=== PATIENT | female | born 1935 | race Caucasian/White ===

== ENCOUNTER → 2016-11-15 | Outpatient (CLI) | payer MEDICARE, BC ==
[~2016-11-15] MED LIST: AMARYL2 MG PO; AMITRYPTYLINE PO; ASPIRIN81 M1 PO; ASPIRIN81 MG PO; ATENOLOL25 MG PO; ATIVAN PO; ATIVAN2 M1 PO; CELEBREX PO; CHEWABLE ASPIRI81 MG PO; CIPRO PO; CLEOCIN HCL300 M1 PO; CLINDAMYCIN HC300 MG PO; CLOPIDOGREL75 MG PO; FLAX SEED OIL1000 MG PO; FOLIC ACID PO; FOSAMAX PO; GLUCOPHAGE500 M1 PO; GLUCOPHAGE500 MG PO; GLUCOVANCE 5/501 TA1 PO; HYDROCODON-ACE1 EAC1 PO; IPRAT-ALBUT 0.5-3 ML INH; LISINOPRIL; LISINOPRIL-HCTZ1 T14 PO; LORTAB 10-5001 EACH; LORTAB 7.5-5001 TAB PO; MACULAR VITAMI0.5 MG PO; MAGNESIUM250 M1 PO; MIRAPEX0.25 MG DOB; MOBIC PO; MORGIDOX100 MG PO; MUCINEX D ER T1 EAC1 PO; OCUVITE SOFTGEL1 CA1 PO; PLAQUENIL200 MG PO; PRAMIPEXOLE DI0.5 MG PO; PROZAC PO; PROZAC40 MG DOB; SYNTHROID PO; SYNTHROID112 MCG PO; VITAMIN B COMPL1 TA3 PO; VITAMIN E1000 UNI1 PO; VITAMIN E400 UNI2 PO; ZESTORETIC 20/11 TAB PO
--- NOTE | ~2016-11-15 | CT55 ---
[facility] A Service [facility] RADIOLOGY TEXT RESULTS PATIENT: LEONIE MANRIQUEZ LOCATION: [facility] : 34 UNIT #: [id number] AGE: [address]: Tylor Andrews MD SEX: F ORDER DR: [id number] [place] [id number] O MR#: [id number] Acc #: [id number] NAME: LEONIE MANRIQUEZ : 1935 SEX: F STUDY DATE/TIME: 11/15/2016 12:57 UNIT: SCT ROOM: STUDY DESCRIPTION: CT Chest W Con Attending Physician: Tylor Andrews M.D. Referring Physician: Tylor Andrews M.D. Ordering Physician: Tylor Andrews M.D. Primary Care Physician: Curt Blanco M.D. MEDICAL IMAGING REPORT This report is preliminary unless electronic signature is present. EXAM CT chest with contrast INDICATION Hypothyroidism. Adverse effect of immunosuppressive therapy. Melanoma. Restaging observation for metastatic disease. PROCEDURE Contrast-enhanced CT of the chest. 100 mL of Isovue 370. This CT examination was performed with one or more of the following radiation dose reduction techniques: automatic exposure control, adjustment of mA and/or kV according to patient size, and iterative reconstruction. COMPARISON 06/12/2016. FINDINGS Redemonstration of mildly prominent mediastinal and hilar lymph nodes in the soft tissue. A right infrahilar node measures 2.3 x 1.3 cm and is not significantly changed from the prior. Cardiomegaly with coronary artery calcification. Previous right mastectomy and axillary node dissection. No abnormal axillary adenopathy. Redemonstration of a UIP type pattern of interstitial lung disease. There is no new dense consolidation. No aggressive appearing bone lesion. Calcified pleural plaques similar. IMPRESSION 1. No evidence for disease progression. 2. UIP type pattern of interstitial lung disease. 3. Mildly prominent hilar and mediastinal nodes are unchanged. Dictated by... [facility] A Service [facility] RADIOLOGY TEXT RESULTS PATIENT: LEONIE MANRIQUE[id number] UNIT #: [id number] AGE: [address]: Tylor Andrews MD SEX: F ORDER DR: Justin Diop M.D. THIS IS AN ELECTRONICALLY VERIFIED REPORT Justin Diop M.D. at 11/19/2016 8:21 AM ZOHAIB/girish TD: 11/16/2016 08:22 JOB #: [id number] MEDICAL IMAGING REPORT Page 1 of 1
--- NOTE | ~2016-11-15 | CT2 ---
[facility] A Service of [facility] RADIOLOGY TEXT RESULTS PATIENT: LEONIE MANRIQUEZ LOCATION: [facility] : 34 UNIT #: [id number] AGE: [address]: Tylor Andrews MD SEX: F ORDER DR: [id number] [place] [id number] O MR#: [id number] Acc #: [id number] NAME: LEONIE MANRIQUEZ : 1935 SEX: F STUDY DATE/TIME: 11/15/2016 12:57 UNIT: SCT ROOM: STUDY DESCRIPTION: CT Abd and Pelv W Cont Attending Physician: Tylor Andrews M.D. Referring Physician: Tylor Andrews M.D. Ordering Physician: Tylor Andrews M.D. Primary Care Physician: Curt Blanco M.D. MEDICAL IMAGING REPORT This report is preliminary unless electronic signature is present. EXAM CT abdomen and pelvis with contrast INDICATION Adverse effect of immunosuppressive therapy. Melanoma restaging. Observation for metastatic disease. PROCEDURE Contrast-enhanced CT of the abdomen and pelvis. 100 mL of Isovue 370. This CT examination was performed with one or more of the following radiation dose reduction techniques: automatic exposure control, adjustment of mA and/or kV according to patient size, and iterative reconstruction. COMPARISON 06/12/2016. FINDINGS ABDOMEN WITH CONTRAST: No liver or splenic mass. The kidneys and adrenal glands are unremarkable. Duodenal diverticulum. There is a 9 mm cyst in the tail of the pancreas. Bowel loops nondilated. No abdominal adenopathy. PELVIS WITH CONTRAST: Partially calcified fibroid in the uterus is unchanged. Streak artifact from right hip prosthesis. No adnexal mass or pelvic adenopathy. Atherosclerotic calcification throughout the abdominal aorta and major pelvic arteries. No aggressive appearing bone lesion. IMPRESSION 1. No convincing evidence for metastatic disease in the abdomen or pelvis. 2. Incidental findings are detailed above. [facility] A Service of [facility] RADIOLOGY TEXT RESULTS PATIENT: LEONIE MANRIQUEZ LOCATION: [facility] : 34 UNIT #: [id number] AGE: [address]: Tylor Andrews MD SEX: F ORDER DR: Dictated by... Justin Diop M.D. THIS IS AN ELECTRONICALLY VERIFIED REPORT Justin Diop M.D. at 11/19/2016 8:21 AM ZOHAIB/girish TD: 11/16/2016 09:34 JOB #: [id number] MEDICAL IMAGING REPORT Page 1 of 1
--- NOTE | ~2016-11-15 | MR107 ---
[facility] A Service of [facility] & [facility] RADIOLOGY TEXT RESULTS PATIENT: LEONIE MANRIQUEZ LOCATION: [facility] : 34 UNIT #: [id number] AGE: [address]: Tylor Andrews MD SEX: F ORDER DR: [id number] [address] [address] [id number] O MR#: [id number] Acc #: [id number] NAME: LEONIE MANRIQUEZ : 1935 SEX: F STUDY DATE/TIME: 11/15/2016 12:10 UNIT: SCT ROOM: STUDY DESCRIPTION: MR Gino Cintron WWo Cont Lt Attending Physician: Tylor Andrews M.D. Referring Physician: Tylor Andrews M.D. Ordering Physician: Tylor Andrews M.D. Primary Care Physician: Curt Blanco M.D. MRI CENTER REPORT This report is preliminary unless electronic signature is present. EXAM MRI of the left hip and thigh. HISTORY Follow up left inner thigh mass. Patient history of multiple myeloma. Continued decrease in size of lesions since infusion therapy. COMPARISON MRI 06/12/2016 and 08/18/2015. FINDINGS Multiplanar, multiecho imaging was performed of the left hip and thigh utilizing a high field magnet and dedicated protocol. Examination demonstrates further decrease in size of the patient's left thigh lesion which lies just medial and deep to the iliac vessels. The lesion measures no more than 8 x 11 mm. On the previous MRI, this measured about 1 x 1.3 cm. This is felt to correspond to the large mass noted on the July 2015 study. No new mass lesions are identified. Lesion lateral to the iliac vessels measures about 1.2 x 1.8 cm, and also appears slightly smaller than prior study and may represent a component of the patient's primary lesion. There are several STIR hyperintense lesions more proximal within the groin compatible with lymph nodes. Thigh musculature appears normal. The femoral vessels appear normal. Visualized pelvis and thigh musculature normal. IMPRESSION Continued decrease in size of the patient's left proximal thigh mass which now measures no more than 8 x 11 mm. This component is slightly deep and medial to the femoral vessels, but is felt to correspond to the patient's original primary lesion. A second lesion lateral to the femoral vessels has also shown slight decrease in size and could represent a component of the patient's primary lesion and this measures about 1.2 x 1.8 cm, though this could possibly just represent a lymph node. Clearly no new areas of STS. [facility] A Service of [facility] RADIOLOGY TEXT RESULTS PATIENT: LEONIE MANRIQUEZ LOCATION: [facility] : 34 UNIT #: [id number] AGE: [address]: Tylor Andrews MD SEX: F ORDER DR: tumor are identified. Dictated by... Jian Ribeiro M.D. THIS IS AN ELECTRONICALLY VERIFIED REPORT Jian Ribeiro M.D. at 11/19/2016 1:19 PM BEVERLY/yovani TD: 11/19/2016 12:15 JOB #: [id number] MRI CENTER REPORT Page 1 of 1
[2016-11-15 13:00] LABS: POC - GFR >60.0 mL/min (>60)
== END | disposition home or self-care (01) ==
LOC: SCT 11:12
PROVIDERS: Internal Medicine Hematology
DX: C43.59 Malignant melanoma of other part of trunk (principal); T45.1X5D Adverse effect of antineoplastic and immunosuppressive drugs, subsequent encounter; E03.2 Hypothyroidism due to medicaments and other exogenous substances; R22.42 Localized swelling, mass and lump, left lower limb
CPT/HCPCS: 71260; 73720; 74177; 82565; A9581; Q9967

== ENCOUNTER → 2017-03-29 | Outpatient (CLI) | payer MEDICARE, BC ==
--- NOTE | ~2017-03-29 | MR107 ---
[facility] A Service of [facility] & [facility] RADIOLOGY TEXT RESULTS PATIENT: LEONIE MANRIQUEZ LOCATION: [facility] : 34 UNIT #: [id number] AGE: [address]: Tylor Andrews MD SEX: F ORDER DR: [id number] [address] [address] [id number] O MR#: [id number] Acc #: [id number] NAME: LEONIE MANRIQUEZ : 1935 SEX: F STUDY DATE/TIME: 03/29/2017 10:55 UNIT: SCT ROOM: STUDY DESCRIPTION: MR Gino Cintron WWo Cont Lt Attending Physician: Tylor Andrews M.D. Referring Physician: Tylor Andrews M.D. Ordering Physician: Tylor Andrews M.D. Primary Care Physician: Curt Blanco M.D. MRI CENTER REPORT This report is preliminary unless electronic signature is present. EXAM MRI of the left thigh and femur. HISTORY 81-year-old female with anterior medial thigh mass. States has continued to increase in size. History of breast cancer and melanoma. TECHNIQUE Multiplanar multiecho imaging was performed of the left groin and proximal thigh utilizing a high field magnet dedicated protocol. COMPARISON Comparison also made to patient's study from 08/19/2015. FINDINGS The examination demonstrates a small structure anterior medial thigh just medial to the iliac vessels, measuring no more than 9 x 10 mm. This is felt to correspond to the residua of the patient's large mass as noted on the patient's July 2015 study. This is essentially unchanged from the patient's October 2016 study. A second small lesion is seen lateral to the iliac vessels also in the anterior thigh measuring about 1.7 x 1.2 cm. This also remains unchanged from prior studies. Imaging features suggest that this may represent a lymph node and has not appreciably changed from the patient's October 2016 study, and is also essentially unchanged from the original July 2015, study. There are a few additional small lymph nodes, superior to the site patient's primary lesion, and these appear unchanged from prior studies. Thigh musculature unremarkable. The iliac vessels and osseous structures appear normal. IMPRESSION Stable small soft tissue lesion in the left groin which is felt to represent the residua of the patient's primary tumor. This is unchanged from October study, but has shown marked decrease when compared to the [facility]. [facility] A Service of [facility] RADIOLOGY TEXT RESULTS PATIENT: LEONIE MANRIQUEZ LOCATION: [facility] : 34 UNIT #: [id number] AGE: [address]: Tylor Andrews MD SEX: F ORDER DR: original study in July 2015. Second lesion lateral to the iliac vessels remains unchanged probably represents a lymph node, as well as additional smaller superior nodes in the left groin, but these all appear unchanged from prior studies. No findings to suggest recurrent neoplasm. Dictated by... Jian Ribeiro M.D. THIS IS AN ELECTRONICALLY VERIFIED REPORT Jian Ribeiro M.D. at 04/02/2017 5:07 PM Dionte TD: 04/01/2017 15:41 JOB #: [id number] MRI CENTER REPORT Page 1 of 1
--- NOTE | ~2017-03-29 | CT55 ---
[facility] A Service of [facility] & [facility] RADIOLOGY TEXT RESULTS PATIENT: LEONIE MANRIQUEZ LOCATION: [facility] : 34 UNIT #: [id number] AGE: [address]: Tylor Andrews MD SEX: F ORDER DR: [id number] [address] [address] [id number] O MR#: [id number] Acc #: [id number] NAME: LEONIE MANRIQUEZ : 1935 SEX: F STUDY DATE/TIME: 03/29/2017 9:43 UNIT: SCT ROOM: STUDY DESCRIPTION: CT Chest W Con Attending Physician: Tylor Andrews M.D. Referring Physician: Tylor Andrews M.D. Ordering Physician: Tylor Andrews M.D. Primary Care Physician: Curt Blanco M.D. MEDICAL IMAGING REPORT This report is preliminary unless electronic signature is present. EXAM CT chest with contrast 03/29/2017 HISTORY 81-year-old female with history of malignant melanoma. 4-month follow. Observation metastatic disease. Restaging. Smoking history. COMPARISON CT chest 11/15/2016. TECHNIQUE 5 mm axial images through the chest after intravenous contrast administration. Sagittal and coronal reformatted images were obtained. This CT exam was performed with one or more of the following radiation dose reduction techniques: automatic exposure control, adjustment of mA and/or kV according to patient size, and iterative reconstruction. FINDINGS Severe interstitial pulmonary fibrosis is seen with extensive honeycombing fibrosis, greatest within the left upper lobe and khrf-ieortss-xcoh-right lower lobes. No superimposed acute airspace disease is identified. No discrete or suspicious pulmonary nodules evident. No pericardial effusion or pleural effusion is identified. There is stable mild cardiomegaly. Coronary artery calcifications are present. A few, mildly prominent lymph nodes are present within the mediastinum which appears stable. One of the largest nodes in the right lower paratracheal region measures 1.1 cm and contains central calcification, most suggestive of benign etiology. Another index node or anai aggregate in the AP window measures 1.4 cm. Pleural-based calcifications are present bilaterally. Right chest wall koko catheter STS. [facility] A Service of [facility] & [facility] RADIOLOGY TEXT RESULTS PATIENT: LEONIE MANRIQUEZ LOCATION: [facility] : 34 UNIT #: [id number] AGE: [address]: Tylor Andrews MD SEX: F ORDER DR: extends into the superior vena cava. Advanced degenerative changes of the right shoulder. Multilevel degenerative changes in the thoracic spine. Severe chronic-appearing compression fracture of T5 with vertebral plana configuration focal kyphosis. There is approximately 4 mm bony retropulsion posteriorly at this level. Additionally, there is a moderate but chronic-appearing compression deformity of T12 with only 2 mm bony retropulsion but no subluxation. No acute or suspicious osseous lesions are identified. Right mastectomy changes noted. Cholecystectomy. Adrenal glands and the remainder included upper abdominal organs are within normal limits. Ectasia of the mid-descending thoracic aorta, 2.9 cm. IMPRESSION 1. Stable mildly prominent mediastinal lymph nodes since the previous examination. They are favored to represent benign reactive changes. 2. Features of advanced interstitial pulmonary fibrosis in keeping with the appearance of usual interstitial pneumonia. No acute airspace disease. 3. Chronic compression fractures of T5 and T12 with mild bony retropulsion but no subluxation. 4. Right mastectomy. 5. Stable mild cardiac enlargement with dense coronary artery calcifications. Correlate with cardiac history. 6. Mild bilateral pleural calcifications or calcified pleural plaques. Correlate for history of asbestos exposure. 7. Cholecystectomy. 8. No convincing evidence of metastatic disease in the chest. Dictated by... Anel Reed M.D. THIS IS AN ELECTRONICALLY VERIFIED REPORT Anel Reed M.D. at 03/31/2017 7:46 PM RAMOS/kandi TD: 03/31/2017 12:47 JOB #: [id number] MEDICAL IMAGING REPORT Page 1 of 1
--- NOTE | ~2017-03-29 | CT2 ---
[facility] A Service of [facility] RADIOLOGY TEXT RESULTS PATIENT: LEONIE MANRIQUEZ LOCATION: [facility] : 34 UNIT #: [id number] AGE: [address]: Tylor Andrews MD SEX: F ORDER DR: [id number] [address] [address] [id number] O MR#: [id number] Acc #: [id number] NAME: LEONIE MANRIQUEZ : 1935 SEX: F STUDY DATE/TIME: 03/29/2017 8:20 UNIT: [facility] ROOM: STUDY DESCRIPTION: CT Abd and Pelv W Cont Attending Physician: Tylor Andrews M.D. Referring Physician: Tylor Andrews M.D. Ordering Physician: Tylor Andrews M.D. Primary Care Physician: Curt Blanco M.D. MEDICAL IMAGING REPORT This report is preliminary unless electronic signature is present. EXAM CT abdomen and pelvis. INDICATIONS Malignant melanoma. Restaging. Observation for metastatic disease. TECHNIQUE CT of the abdomen and pelvis with p.o. and IV contrast (100 mL Isovue-370 IV contrast). Coronal and sagittal reconstructions were obtained. This CT exam was performed with one or more of the following radiation dose reduction techniques: automatic exposure control, adjustment of mA and/or kV according to patient size, and iterative reconstruction. COMPARISON CT abdomen and pelvis, 11/15/2016. FINDINGS ABDOMEN: Please refer to the separate dictated report for details on the chest. There is no focal abnormal enhancing mass or lesion within the solid abdominal organs. The pancreas is atrophic. There is laxity of the anterior abdominal wall; however, no discrete hernia. The bowel is not dilated. No enlarged retroperitoneal or mesenteric lymph nodes. The abdominal aorta is tortuous. PELVIS: No pelvic mass. There is a fibroid along the anterior uterine wall. No enlarged pelvic or inguinal lymph nodes. Patient has a right total hip arthroplasty. No acute osseous abnormalities. [facility] A Service of [facility] RADIOLOGY TEXT RESULTS PATIENT: LEONIE MANRIQUEZ LOCATION: [facility] : 34 UNIT #: [id number] AGE: [address]: Tylor Andrews MD SEX: F ORDER DR: IMPRESSION 1. No evidence of metastatic disease in the abdomen and pelvis. Dictated by... Jorge Blas M.D. THIS IS AN ELECTRONICALLY VERIFIED REPORT Jorge Blas M.D. at 03/31/2017 3:23 PM RPC/akilah TD: 03/31/2017 13:39 JOB #: [id number] MEDICAL IMAGING REPORT Page 1 of 1
[2017-03-29 09:25] LABS: POC - CREATININE 0.62 mg/dL (0.44-1.03); POC - GFR >60.0 mL/min (>60)
== END | disposition home or self-care (01) ==
LOC: SCT 08:23 → CCAT 09:00
PROVIDERS: Internal Medicine Hematology
DX: C43.59 Malignant melanoma of other part of trunk (principal); I25.10 Atherosclerotic heart disease of native coronary artery without angina pectoris; J84.10 Pulmonary fibrosis, unspecified; I51.7 Cardiomegaly; Z90.49 Acquired absence of other specified parts of digestive tract; Z90.11 Acquired absence of right breast and nipple
CPT/HCPCS: 71260; 73720; 74177; 82565; A9581; Q9967